=== PATIENT | male | born 1935 | race Caucasian/White ===

== ENCOUNTER → 2018-11-01 14:52 | Outpatient (CLI) | payer OTHER ==
[~2018-11-01 14:52] MED LIST: ACCUNEB0.63 MG/3; ACIDOPHILUS1 EAC3 PO; AMOX1TAB12 PO; BENADRYL50 MG; EC-NAPROSYN500 MG; FLONASE16 G1 NS; INTESTINEX680 MG PO; METFORMIN HCL500 MG PO; SIMVASTATIN20 MG; SINGULAIR10 MG PO; SINGULAIR4 MG; TOPROL XL50 MG; TUSSI-PRES LIQ118 ML PO; ZANTAC300 MG; ZYRTEC10 MG PO
== END | disposition home or self-care (01) ==
LOC: EKG 14:52
DX: I10 Essential (primary) hypertension (principal)

== ENCOUNTER 2019-05-25 10:47 | Outpatient (CLI) | payer OTHER | END 2019-05-25 10:54 | disposition home or self-care (01) | LOC: RAD 10:47 | DX: M12.851 Other specific arthropathies, not elsewhere classified, right hip (principal); M12.852 Other specific arthropathies, not elsewhere classified, left hip ==

== ENCOUNTER 2020-05-03 14:26 | Emergency (ER) | payer OTHER ==
[~2020-05-03] VITALS: Ht 165.1 cm; Wt 91.6 kg
[2020-05-03] MEDS ORDERED: NEURONTIN300 MG (14:45)
== END 2020-05-03 17:58 | disposition home or self-care (01) ==
LOC: ER 14:26
DX: S50.01XA Contusion of right elbow, initial encounter (principal); S40.011A Contusion of right shoulder, initial encounter; W18.39XA Other fall on same level, initial encounter; Y93.89 Activity, other specified; Y92.048 Other place in boarding-house as the place of occurrence of the external cause; Y99.8 Other external cause status

== ENCOUNTER 2021-07-14 12:07 | Outpatient (CLI) | payer OTHER ==
[~2021-07-14 12:07] MED LIST changes: +NEURONTIN300 MG
== END 2021-07-14 12:12 | disposition home or self-care (01) ==
LOC: SONOGRAMA 12:07 → MAMO-SONO 13:15
PROVIDERS: ATTEND Internal Medicine Cardiovascular Disease
DX: M17.11 Unilateral primary osteoarthritis, right knee (principal)

== ENCOUNTER 2023-10-31 09:22 | Inpatient (IN) | payer OTHER ==
[~2023-10-31] VITALS: Ht 132.1 cm; Wt 93.0 kg
[2023-10-31] MEDS ORDERED: UROXATRAL10 MG PO (10:02)
[2023-10-31 11:35] LABS: MEAN CORPUSCULAR HGB CONC 31.9 g/dl (32.0-36.0); PLATELET COUNT 259 K/uL (150-450); RED BLOOD COUNT 2.69 M/uL (4.00-6.00)
[2023-10-31 11:39] LABS: HEMATOCRIT 18.6 % (39.0-48.0); MEAN CELL VOLUME 69.3 fL (80.0-100.00); MEAN CORPUSCULAR HEMOGLOBIN 21.9 pg (27.00-32.0)
[2023-10-31 11:40] LABS: HEMOGLOBIN 5.9 g/dL (13-16.00); RED CELL DISTRIBUTION WIDTH 20.4 % (11.5-14.5)
[2023-10-31 11:48] LABS: CREATININE SERUM 1.02 mg/dL (0.70-1.30); GFR 69.25; POTASSIUM 4.24 mEq/L (3.5-5.1)
[2023-10-31 23:14] LABS: PH,URINE 6.5 (5.0-8.0); URINE APPEARANCE Clear; URINE BILIRRUBIN Negative (NEGATIVE); URINE BLOOD Negative; URINE COLOR Yellow; URINE GLUCOSE Negative (NEGATIVE); URINE LEUKOCYTE Trace; URINE NITRATE Negative; URINE PROTEIN Negative (NEGATIVE)
[2023-10-31 23:19] LABS: URINE BACTERIA 389.2 uL (0.0-1933); URINE EPITHELIAL CELLS 9.7 uL (0.0-38.8); URINE WBC 25.8 uL (0.0-23.2)
[2023-10-31 23:37] LABS: INR 1.05; PARTIAL THROMBOPLASTIN TIME 29.1 SECONDS (22.0-34.0)
[2023-10-31 23:41] LABS: URINE RBC 1.4 uL (0.0-20.8)
[2023-11-01 13:10] LABS: ALBUMIN 3.3 gm/dL (3.4-5.0); BILIRUBIN TOTAL 1.06 mg/dL (0.3-1.2); CALCIUM 8.4 mg/dL (8.5-10.1); CREATININE SERUM 0.84 mg/dL (0.70-1.30); GFR 86.64; GLOBULINA 3.4 G/DL (2.4-3.5); POTASSIUM 4.2 mEq/L (3.5-5.1); TOTAL PROTEIN 6.7 gm/dL (6.4-8.2)
[2023-11-01 13:16] LABS: FERRITIN 3.7 NG/ML (26-388)
[2023-11-01 15:03] LABS: COL EPI 255 SECONDS (82-175)
[2023-11-01 15:04] LABS: COL ADP 127 SECONDS (56-102)
[2023-11-02 13:58] LABS: ob NEGATIVE (NEGATIVE)
[2023-11-02 17:57] LABS: HEMATOCRIT 28.8 % (39.0-48.0); HEMOGLOBIN 9.3 g/dL (13-16.00); MEAN CELL VOLUME 74.3 fL (80.0-100.00); MEAN CORPUSCULAR HGB CONC 32.4 g/dl (32.0-36.0); PLATELET COUNT 238 K/uL (150-450); RED BLOOD COUNT 3.87 M/uL (4.00-6.00); RED CELL DISTRIBUTION WIDTH 22.8 % (11.5-14.5)
[2023-11-03 07:07] LABS: HEMATOCRIT 27.6 % (39.0-48.0); MEAN CELL VOLUME 73.7 fL (80.0-100.00); MEAN CORPUSCULAR HGB CONC 32.5 g/dl (32.0-36.0); PLATELET COUNT 239 K/uL (150-450); RED BLOOD COUNT 3.74 M/uL (4.00-6.00); RED CELL DISTRIBUTION WIDTH 23.3 % (11.5-14.5)
[2023-11-03 07:20] LABS: CALCIUM 8.6 mg/dL (8.5-10.1); CREATININE SERUM 0.93 mg/dL (0.70-1.30); GFR 77.04; MAGNESIUM 2.1 mg/dL (1.8-2.4); POTASSIUM 3.79 mEq/L (3.5-5.1)
[2023-11-04 05:32] LABS: HEMATOCRIT 28.7 % (39.0-48.0); HEMOGLOBIN 9.2 g/dL (13-16.00); MEAN CELL VOLUME 73.9 fL (80.0-100.00); MEAN CORPUSCULAR HEMOGLOBIN 23.8 pg (27.00-32.0); MEAN CORPUSCULAR HGB CONC 32.3 g/dl (32.0-36.0); PLATELET COUNT 216 K/uL (150-450); RED BLOOD COUNT 3.88 M/uL (4.00-6.00); RED CELL DISTRIBUTION WIDTH 23.4 % (11.5-14.5)
[2023-11-04 05:54] LABS: CALCIUM 8.3 mg/dL (8.5-10.1); CREATININE SERUM 0.87 mg/dL (0.70-1.30); GFR 83.2; MAGNESIUM 2.2 mg/dL (1.8-2.4); POTASSIUM 3.61 mEq/L (3.5-5.1)
[2023-11-04] MEDS ORDERED: PROTONIX40 MG PO (15:51)
[2023-11-04] MEDS ORDERED: TAMS0.4C PO (15:51)
[2023-11-04] MEDS ORDERED: PEPCID AC20 MG PO (15:51)
[2023-11-04] MEDS ORDERED: B-100 COMPLEX1 EACH PO (15:54)
[2023-11-04] MEDS ORDERED: INTEGRA PLUS C1 EACH PO (15:54)
== END 2023-11-04 17:45 | disposition home or self-care (01) | DRG 812 ==
LOC: ER 09:23 → SEC-K 19:12 → MEDJ 19:12
PROVIDERS: General Practice; Internal Medicine Hematology & Oncology; ADMIT Internal Medicine; ATTEND Internal Medicine
PROC: 4A12X4Z Monitoring of Cardiac Electrical Activity, External Approach (ICD-10-PCS; principal; 2023-11-01)
PROC: 30233N1 Transfusion of Nonautologous Red Blood Cells into Peripheral Vein, Percutaneous Approach (ICD-10-PCS; 2023-11-01)
PROC: BD24ZZZ Computerized Tomography (CT Scan) of Colon (ICD-10-PCS; 2023-11-01)
PROC: BW21YZZ Computerized Tomography (CT Scan) of Abdomen and Pelvis using Other Contrast (ICD-10-PCS; 2023-11-01)
DX: D64.9 Anemia, unspecified (principal); K92.1 Melena; E66.9 Obesity, unspecified; I10 Essential (primary) hypertension; F03.90 Unspecified dementia, unspecified severity, without behavioral disturbance, psychotic disturbance, mood disturbance, and anxiety; G47.33 Obstructive sleep apnea (adult) (pediatric); D50.9 Iron deficiency anemia, unspecified